=== PATIENT | female | born 1940 | race Caucasian/White ===

== ENCOUNTER 2024-04-21 19:48 | Emergency (ER) | payer OTHER ==
[2024-04-21 19:58] VITALS: RESP 17; TEMP 98.1; BMI 30.4
[2024-04-21] MEDS ORDERED: METOCLOPRAMIDE HCL INJECTION 10 MG/2 ML VIAL ONE (20:45)
[2024-04-21] MEDS ORDERED: ACETAMINOPHEN INJECTION 100 ML IVPB ONE (20:45)
[2024-04-21] MEDS: SODIUM CHLORIDE 1,000 ML IV STA (21:03)
[2024-04-21] MEDS: METOCLOPRAMIDE HCL INJECTION 10 MG/2 ML VIAL IVPUSH ONE (21:03)
[2024-04-21] MEDS: ACETAMINOPHEN 1000 MG/100 ML BAG IVPB ONE (21:04)
[2024-04-21 21:07] LABS: BASO % 1.5 % (0-2.0); EOS % 2.5 % (0-4.5); HEMATOCRIT 33.3 % (32.4-45.2); HEMOGLOBIN 10.8 GM/dL (10.7-15.3); LYMPH % 31.5 % (8-40); MCH 26.1 pg (25.7-33.7); MCHC 32.5 g/dl (32.0-36.0); MEAN CELL VOLUME 80.4 fl (80-96); MEAN PLT VOLUME 7.5 fl (7.5-11.1); MONO % 6.6 % (3.8-10.2); NEUT % 57.9 % (42.8-82.8); PLATELET COUNT 329 10^3/uL (134-434); RBC 4.14 M/mm3 (3.60-5.2); RDW 15.3 % (11.6-15.6); WHITE BLOOD COUNT 9.5 K/mm3 (4.0-10.0)
[2024-04-21 21:30] LABS: ALBUMIN 3.6 g/dl (3.4-5.0); CALCIUM 9.7 mg/dL (8.5-10.1)
[2024-04-21 21:31] LABS: BLOOD UREA NITROGEN 12.1 mg/dL (7-18)
[2024-04-21 21:33] LABS: CREATININE 0.6 mg/dL (0.55-1.3)
[2024-04-21 21:35] LABS: BILIRUBIN,TOTAL 0.5 mg/dL (0.2-1)
[2024-04-22 01:56] VITALS: BP 158/82; PULSE 80
== END 2024-04-22 01:56 | disposition home or self-care (01) ==
LOC: JER 19:48
PROC: 3E033GC Introduction of Other Therapeutic Substance into Peripheral Vein, Percutaneous Approach (ICD-10-PCS; principal; 2024-04-21)
PROC: 3E0337Z Introduction of Electrolytic and Water Balance Substance into Peripheral Vein, Percutaneous Approach (ICD-10-PCS; 2024-04-21)
DX: R51.9 Headache, unspecified (principal); H92.03 Otalgia, bilateral; R42 Dizziness and giddiness; M79.10 Myalgia, unspecified site
CPT/HCPCS: 0241U-QW; 36415; 70450-TC; 70486-TC; 72125-TC; 80053; 85025; 99284-25

== ENCOUNTER 2024-10-19 12:49 | Observation (INO) | payer OTHER ==
[2024-10-19 14:35] LABS: BASO % 0.4 % (0-2.0); EOS % 1.2 % (0-4.5); HEMATOCRIT 33.4 % (32.4-45.2); HEMOGLOBIN 10.8 GM/dL (10.7-15.3); LYMPH % 24.5 % (8-40); MCH 26.1 pg (25.7-33.7); MCHC 32.2 g/dl (32.0-36.0); MEAN CELL VOLUME 80.9 fl (80-96); MEAN PLT VOLUME 7.1 fl (7.5-11.1); MONO % 6.7 % (3.8-10.2); NEUT % 67.2 % (42.8-82.8); PLATELET COUNT 369 10^3/uL (134-434); RBC 4.13 M/mm3 (3.60-5.2); RDW 14.7 % (11.6-15.6); WHITE BLOOD COUNT 9.5 K/mm3 (4.0-10.0)
[2024-10-19 14:42] LABS: INR 1.1 (0.83-1.09); PROTHROMBIN TIME (PATIENT) 12.6 SEC (9.7-13.0); VENOUS BASE EXCESS 2.4 mmol/L (-2-2); VENOUS O2 SATURATION 47.3 % (70-80); VENOUS PCO2 49.3 mmHg (38-52); VENOUS PH 7.376 (7.310-7.410)
[2024-10-19 14:44] LABS: ACTIVATED PTT 29.8 SECONDS (25.2-36.5)
[2024-10-19] MEDS ORDERED: ACETAMINOPHEN INJECTION 100 ML ONE (14:51)
[2024-10-19] MEDS ORDERED: ONDANSETRON 4 MG/2 ML VIAL ONE (14:51)
[2024-10-19] MEDS ORDERED: FAMOTIDINE 20 MG/50 ML IVPB 20 MG/50 ML MG IVPB ONE (14:52)
[2024-10-19 14:56] LABS: POTASSIUM 4.4 mmol/L (3.5-5.1)
[2024-10-19 14:58] LABS: CALCIUM 9.6 mg/dL (8.5-10.1)
[2024-10-19 14:59] LABS: ALBUMIN 3.1 g/dl (3.4-5.0); BLOOD UREA NITROGEN 7.4 mg/dL (7-18)
[2024-10-19 15:02] LABS: CREATININE 0.5 mg/dL (0.55-1.3)
[2024-10-19 15:04] LABS: BILIRUBIN,TOTAL 0.6 mg/dL (0.2-1); TOT PROT 6.2 g/dl (6.4-8.2)
[2024-10-19] MEDS: ONDANSETRON 4 MG/2 ML VIAL IVPUSH ONE (15:05)
[2024-10-19] MEDS: ACETAMINOPHEN 1000 MG/100 ML BAG IVPB ONE (15:05)
[2024-10-19] MEDS: SODIUM CHLORIDE 0.9% 500 ML INFUS.BAG IV ONE (15:06)
[2024-10-19] MEDS: FAMOTIDINE 20 MG/50 ML IVPB 20 MG/50 ML MG IVPB ONE (15:06)
[2024-10-20 00:38] VITALS: BMI 31.8
[2024-10-20] MEDS: SODIUM CHLORIDE 1,000 ML IV SCH (03:19)
[2024-10-20] MEDS: INSULIN ASPART SLIDING SCALE (NOVOLOG) 1 VIAL SQ SCH (06:17)
[2024-10-20 09:17] LABS: EPI CELLS 7 /uL (0-25.1); HYALINE CASTS 1 /uL (0-3.1); PH,URINE 6.5 (5.0-8.0); URINE APPEARANCE CLEAR; URINE BACTERIA >9,000 /uL (0-1359); URINE BILIRUBIN NEGATIVE (NEGATIVE); URINE COLOR YELLOW; URINE GLUCOSE (UA) NEGATIVE (NEGATIVE); URINE KETONE NEGATIVE (NEGATIVE); URINE LEUK ESTERASE 2+ (NEGATIVE); URINE NITRITE POSITIVE (NEGATIVE); URINE PROTEIN NEGATIVE (NEGATIVE); URINE RBC 18 /uL (0-23.9); URINE WBC 507 /uL (0-25.8)
[2024-10-20] MEDS: ENOXAPARIN NA (PORCINE) 40 MG/0.4 ML DISP.SYRIN SQ SCH (09:28)
[2024-10-20] MEDS: FAMOTIDINE 20 MG/50 ML IVPB 20 MG/50 ML MG IVPB SCH (09:29)
[2024-10-20 09:44] LABS: BASO % 0.6 % (0-2.0); EOS % 1.4 % (0-4.5); HEMATOCRIT 30.7 % (32.4-45.2); HEMOGLOBIN 10.2 GM/dL (10.7-15.3); MCH 26.8 pg (25.7-33.7); MCHC 33.2 g/dl (32.0-36.0); MEAN CELL VOLUME 80.5 fl (80-96); MEAN PLT VOLUME 7.5 fl (7.5-11.1); MONO % 7.2 % (3.8-10.2); NEUT % 61.8 % (42.8-82.8); PLATELET COUNT 343 10^3/uL (134-434); RBC 3.81 M/mm3 (3.60-5.2); RDW 14.9 % (11.6-15.6); WHITE BLOOD COUNT 7.8 K/mm3 (4.0-10.0)
[2024-10-20 09:57] LABS: POTASSIUM 4.5 mmol/L (3.5-5.1)
[2024-10-20 10:13] LABS: ALBUMIN 2.7 g/dl (3.4-5.0); BLOOD UREA NITROGEN 6.4 mg/dL (7-18); CALCIUM 8.8 mg/dL (8.5-10.1); MAGNESIUM 1.4 mg/dL (1.8-2.4)
[2024-10-20 10:16] LABS: CREATININE 0.7 mg/dL (0.55-1.3)
[2024-10-20 10:17] LABS: PHOSPHOROUS 3.8 mg/dL (2.5-4.9)
[2024-10-20 10:18] LABS: BILIRUBIN,TOTAL 0.7 mg/dL (0.2-1); TOT PROT 5.6 g/dl (6.4-8.2)
[2024-10-20] MEDS: ACETAMINOPHEN 1000 MG/100 ML BAG IVPB PRN (11:15)
[2024-10-20] MEDS: PEG 3350/NA SULF BICARB CL/KCL 4000 ML SOLN.RECON PO ONE (11:35)
[2024-10-20] MEDS: IBUPROFEN 800 MG/8 ML IJ IVPB ONE (13:34)
[2024-10-20] MEDS: MAGNESIUM 1GM/D5W 100ML - 100 ML IVPB IVPB ONE (13:34)
[2024-10-20] MEDS: ONDANSETRON 4 MG/2 ML VIAL IVPUSH PRN (15:51)
[2024-10-20] MEDS: MAG HYDROX/AL HYDROX/SIMETH 30 ML UNIT-DOSE CUP PO PRN (16:47)
[2024-10-20] MEDS: CEFTRIAXONE 1 G/50 ML PREMIX 50 ML IVPB SCH (18:21)
[2024-10-20] MEDS: KETOROLAC TROMETHAMINE 15 MG/ML VIAL IVPUSH ONE (18:42)
[2024-10-21] MEDS: amLODIPine BESYLATE 5 MG TABLET (FP) PO SCH (20:53)
[2024-10-22 01:30] VITALS: RESP 18
[2024-10-22] MEDS ORDERED: ACETAMINOPHEN 325 MG TABLET (FP) PO PRN (03:46)
[2024-10-22] MEDS: ACETAMINOPHEN 325 MG TABLET (FP) PO PRN (03:51)
[2024-10-22 11:26] LABS: HEMOGLOBIN 10.7 GM/dL (10.7-15.3); MCH 26.2 pg (25.7-33.7); MCHC 32.5 g/dl (32.0-36.0); MEAN CELL VOLUME 80.8 fl (80-96); MEAN PLT VOLUME 7.8 fl (7.5-11.1); PLATELET COUNT 351 10^3/uL (134-434); RBC 4.08 M/mm3 (3.60-5.2); RDW 14.8 % (11.6-15.6); WHITE BLOOD COUNT 8.7 K/mm3 (4.0-10.0)
[2024-10-22 11:46] LABS: CALCIUM 8.8 mg/dL (8.5-10.1)
[2024-10-22 11:47] LABS: BLOOD UREA NITROGEN 4.7 mg/dL (7-18)
[2024-10-22 11:50] LABS: CREATININE 0.5 mg/dL (0.55-1.3)
[2024-10-22 14:17] VITALS: BP 137/66; PULSE 71; TEMP 98.1
== END 2024-10-22 17:12 | disposition home or self-care (01) ==
LOC: JER 12:49 → JERBED 18:12 → J7W 23:33
PROVIDERS: ADMIT Internal Medicine; ATTEND Internal Medicine
PROC: 3E033NZ Introduction of Analgesics, Hypnotics, Sedatives into Peripheral Vein, Percutaneous Approach (ICD-10-PCS; 2024-10-19)
PROC: 3E023GC Introduction of Other Therapeutic Substance into Muscle, Percutaneous Approach (ICD-10-PCS; 2024-10-19)
PROC: 3E033GC Introduction of Other Therapeutic Substance into Peripheral Vein, Percutaneous Approach (ICD-10-PCS; 2024-10-19)
PROC: 3E03329 Introduction of Other Anti-infective into Peripheral Vein, Percutaneous Approach (ICD-10-PCS; 2024-10-19)
PROC: 3E0333Z Introduction of Anti-inflammatory into Peripheral Vein, Percutaneous Approach (ICD-10-PCS; 2024-10-19)
PROC: 3E0337Z Introduction of Electrolytic and Water Balance Substance into Peripheral Vein, Percutaneous Approach (ICD-10-PCS; 2024-10-19)
PROC: 0DB68ZX Excision of Stomach, Via Natural or Artificial Opening Endoscopic, Diagnostic (ICD-10-PCS; 2024-10-21)
PROC: 0DBM8ZX Excision of Descending Colon, Via Natural or Artificial Opening Endoscopic, Diagnostic (ICD-10-PCS; 2024-10-21)
PROC: 0DB98ZX Excision of Duodenum, Via Natural or Artificial Opening Endoscopic, Diagnostic (ICD-10-PCS; principal; 2024-10-21 12:00)
DX: K29.60 Other gastritis without bleeding (principal); D12.6 Benign neoplasm of colon, unspecified; E11.9 Type 2 diabetes mellitus without complications; K63.9 Disease of intestine, unspecified; N39.0 Urinary tract infection, site not specified; Z90.49 Acquired absence of other specified parts of digestive tract; R91.8 Other nonspecific abnormal finding of lung field
CPT/HCPCS: 0241U-QW; 36415; 71045-TC-FY; 74177-TC; 80048; 80053; 81003; 82010; 82803; 82962; 83690; 83735; 84100; 84484; 85025; 85027; 85610; 85651; 85730; 86140; 86850; 86900; 86901; 87086; 87186; 88305-TC; 88342-TC; 93005; 93010; 97116-GP; 97161-GP; 99285-25; G0378; J0131; Q9967